=== PATIENT | male | born 1995 | race Caucasian/White ===

== ENCOUNTER 2020-01-23 01:58 | Emergency (ER) | payer OTHER ==
[~2020-01-23] VITALS: Ht 182.9 cm; Wt 77.1 kg
[2020-01-23] MEDS ORDERED: LORAZEPAM 0.5 MG TABLET PO ONE ×2 (02:30→07:00)
[2020-01-23] MEDS ORDERED: LORAZEPAM 0.5 MG TABLET ONE ×2 (02:36→06:54)
--- NOTE | 2020-01-23 02:40 | NUR ---
PBIBS C/O TOOTHBRUSH X2 STUCK IN RECTUM SINCE 2199. TO ER BED 4
--- NOTE | 2020-01-23 02:57 | NUR ---
COVID SWAB COLLECTED AND SENT
--- NOTE | 2020-01-23 03:14 | NUR ---
pt back from [place]
--- NOTE | 2020-01-23 04:25 | NUR ---
COVID NEGATIVE PER LAB
--- NOTE | 2020-01-23 06:09 | NUR ---
per case management rn, pt to go to [facility]
--- NOTE | 2020-01-23 06:55 | NUR ---
PATIENT ACCEPTED TO [facility] ER BY DR BUI. # FOR REPORT [phone].
[2020-01-23] MEDS ORDERED: IV NS 0.9% 1,000 ML IV ONE (07:00)
--- NOTE | 2020-01-23 07:06 | NUR ---
JOCELYN CORTES 40 MIN.
[2020-01-23 07:12] LABS: BASOPHILS % (AUTO) 0.4 % (0.0-2.0); EOSINOPHILS % (AUTO) 0.7 % (0.0-6.0); HEMATOCRIT 44 % (39-51); HEMOGLOBIN 15.1 g/dL (13.5-17.5); LYMPHOCYTES # (AUTO) 3.2 /CMM (0.8-4.8); MEAN CORPUSCULAR HGB CONC 34 g/dl (31.0-36.0); MEAN CORPUSCULAR VOLUME 89 fL (80-96); MONOCYTES # (AUTO) 0.9 /CMM (0.1-1.30); MONOCYTES % (AUTO) 8.1 % (2.0-12.0); NEUTROPHILS # (AUTO) 6.6 /CMM (1.8-8.9); NEUTROPHILS % (AUTO) 60.8 % (43.0-81.0); PLATELET COUNT (AUTO) 296 /CMM (150-450); RED BLOOD CELL COUNT(AUTO) 4.91 MIL/uL (4.5-6.0); WHITE BLOOD COUNT (AUTO) 10.8 K/uL (4.3-11.0)
[2020-01-23 07:15] VITALS: BP 128/89
[2020-01-23 07:37] LABS: CALCIUM, SERUM 9.3 mg/dL (8.5-10.1); POTASSIUM 3.2 mmol/L (3.5-5.1)
--- NOTE | 2020-01-23 07:43 | NUR ---
report given to cher beltrán
--- NOTE | 2020-01-23 08:27 | NUR ---
SPOKE TO DR KELLER (GI) AND INFORMED HIM OF THE SITUATION REGARDING INSURANCE. GAVE HIM THE [employer] DIRECT NUMBER [phone]
--- NOTE | 2020-01-23 08:28 | NUR ---
FAXED OVER NEGATIVE COVID RESULTS
--- NOTE | 2020-01-23 08:39 | NUR ---
GOING TO [facility] # FOR REPORT [phone]. [id number] ADMITTING DR BUI
--- NOTE | 2020-01-23 08:59 | NUR ---
REPORT GIVEN TO CHASIDY, AWAITING TRANSFER TO FLOOR.
--- NOTE | 2020-01-23 09:43 | NUR ---
PT IN STABLE CONDITION, NAD NOTED AT THIS TIME. PT ENROUTE TO [facility] VIA BLS FOR [facility].
== END 2020-01-23 09:45 | disposition short-term general hospital (02) ==
LOC: ER 02:06
DX: T18.5XXA Foreign body in anus and rectum, initial encounter (principal); X58.XXXA Exposure to other specified factors, initial encounter; Y93.89 Activity, other specified; Y92.89 Other specified places as the place of occurrence of the external cause; F41.9 Anxiety disorder, unspecified; R00.0 Tachycardia, unspecified; R03.0 Elevated blood-pressure reading, without diagnosis of hypertension; Z20.828 Contact with and (suspected) exposure to other viral communicable diseases
CPT/HCPCS: 36415; 72190; 74176; 80048; 85025; 85610; 86850; 87426; 93005; 96360; 99285; C9803